=== PATIENT | male | born 1975 | race Caucasian/White ===

== ENCOUNTER 2021-12-15 06:13 | Day surgery (SDC) | payer OTHER ==
[~2021-12-15] VITALS: Ht 182.9 cm; Wt 117.3 kg
[2021-12-15] MEDS ORDERED: NIFE-34 PO (07:23)
[2021-12-15] MEDS ORDERED: HYDR25TA5 PO (07:23)
[2021-12-15] MEDS ORDERED: ALLO300T2 PO (07:23)
[2021-12-15] MEDS ORDERED: OMEP40CA21 PO (07:23)
[2021-12-15] MEDS ORDERED: IBUP-1986 PO (07:23)
[2021-12-15] MEDS ORDERED: GABA-530 PO (07:23)
[2021-12-15] MEDS ORDERED: LISI40TA13 PO (07:23)
[2021-12-15 07:26] VITALS: BP 154/93
[2021-12-15 07:56] LABS: BASOPHILS # (AUTO) 0.1 X10'3 (0-0.2); BASOPHILS % (AUTO) 1.3 % (0-1); EOSINOPHILS # (AUTO) 0.2 X10'3 (0-0.9); EOSINOPHILS % (AUTO) 3.3 % (0-6); HEMATOCRIT 46.2 % (42.0-52.0); HEMOGLOBIN 16.1 g/dl (14.0-17.9); LYMPHOCYTES # (AUTO) 1.2 X10'3 (1.1-4.8); LYMPHOCYTES % (AUTO) 19.6 % (21-51); MEAN CORPUSCULAR HEMOGLOBIN 32.4 PG (27.0-31.0); MEAN CORPUSCULAR HGB CONC 34.7 g/dL (33.0-36.5); MEAN CORPUSCULAR VOLUME 93.2 FL (78-98); MEAN PLATELET VOLUME 7.3 FL (7.4-10.4); MONOCYTES # (AUTO) 0.8 X10'3 (0-0.9); MONOCYTES % (AUTO) 13.5 % (2-12); NEUTROPHILS # (AUTO) 3.8 X10'3 (1.8-7.7); NEUTROPHILS % (AUTO) 62.3 % (42-75); PLATELET COUNT 347 X10'3 (140-440); RED BLOOD COUNT 4.96 X10'6 (4.70-6.10); RED CELL DISTRIBUTION WIDTH 12.9 % (11.5-14.5); WHITE BLOOD COUNT 6.1 X10'3 (4.5-11.0)
[2021-12-15] MEDS ORDERED: LIDOcaine 1% 30ml preserv. free vial IJ STA (08:11)
[2021-12-15 09:00] VITALS: BP 154/93
[2021-12-15 09:18] VITALS: BP 138/87
== END 2021-12-15 09:22 | disposition home or self-care (01) ==
LOC: SSTAY O 06:13
PROVIDERS: ATTEND Radiology Vascular & Interventional Radiology
DX: R59.9 Enlarged lymph nodes, unspecified (principal); Z88.8 Allergy status to other drugs, medicaments and biological substances; Z79.899 Other long term (current) drug therapy; Z98.890 Other specified postprocedural states
CPT/HCPCS: 20206; 36415; 76942; 85025; 87070; J3490